=== PATIENT | female | born 1965 | race Caucasian/White ===

== ENCOUNTER 2020-04-04 09:36 | Day surgery (SDC) | payer OTHER, SELFPAY ==
[2020-03-28 13:56] VITALS: BMI 20.2
--- NOTE | 2020-04-03 10:17 | HP_ITS ---
DATE OF SERVICE: 04/04/2020 PREOPERATIVE DIAGNOSES: 1. Tailor's bunion, left foot. 2. Hammertoe deformity, left 4th and 5th toes, left foot. PLANNED PROCEDURE: Left foot total metatarsal head excision, 5th metatarsal; hammertoe repair, 4th toe; and tenotomy, capsulotomy, 4th MPJ; and flexor tenotomy, 5th toe. PAST MEDICAL HISTORY: Arthritis, anxiety, hip, back and knee pain, depression, epilepsy, fibromyalgia, headaches, migraines, chickenpox, stomach ulcer, and sleep apnea. CURRENT MEDICATIONS: Hydroxyzine, cyclobenzaprine, Fioricet, Flonase, BuSpar, and Protonix. PAST SURGICAL HISTORY: Neck fusion, leg surgery, skin cancer. FAMILY HISTORY: Diabetes, arthritis. SOCIAL HISTORY: Nonsmoker. Relates occasional alcohol use. Does relate drug use. ALLERGIES: PENICILLIN, KEFLEX, CEFTIN, ADVIL, ALEVE, MOTRIN, AND SULFA. HOSPITALIZATIONS: Stomach issues 2018 and 2019. REVIEW OF SYSTEMS: Within normal limits. HISTORY OF PRESENT ILLNESS: This is a 54-year-old female who presents with pain and tenderness on her left 4th and 5th toes in the outside of her left forefoot, it has been present for several years and gradually getting worse, relates pain with pressure especially barefooted. Has tried change in shoes, injections, orthotics, bracing, strapping, and wraps with no success. PHYSICAL EXAMINATION: GENERAL: Reveals good attention to hygiene, no acute distress. Well-developed and well-nourished. VASCULAR EXAM: DP and PT pulses are 2/4 bilaterally. Capillary refill is 3 seconds per digit. Skin temperature is warm to cool proximal to distal. Hair growth, texture, elasticity are normal bilaterally. Pigmentation is normal bilaterally and there is no edema. NEUROLOGICAL EXAM: Reveals intact sensorium. Pain sensation is normal. Vibratory sensation is intact. Pinprick sensation is normal. There is no anesthesias, burning, paresthesias, or tingling bilaterally. ORTHOPEDIC: 5/5 in all muscle groups in a symmetrical fashion. Gait abnormality is pronated and abducted. Tailor's bunion, there is a prominent painful inflamed 5th metatarsal head MPJ of the left foot. Digital deformities, digital contracture of the PIPJ T3 and completely reducible to push-up test. No over or underlapping digital contracture, reducible with weightbearing test T4, MPJ contracture of dorsal subluxation T3, pain and swelling to plantar MPJ 5th left. DERMATOLOGICAL EXAM: Reveals keratotic lesion sub-fifth metatarsal head, left foot. PLAN: Metatarsal head excision of the 5th, hammertoe repair of the 4th toe with tenotomy, capsulotomy of the 4th, and flexor tenotomy of the 5th surgery was discussed in detail with the patient including risks of surgery and not having surgery, the potential surgical complications, the anesthesia, and the usual postoperative course. No guarantees were given. We discussed with the patient complications such as, but not limited to delayed healing, nonhealing, excessive scarring, excessive swelling, failure of the procedure, floppy toe infection, nonunion, numbness, chronic pain, recurrence, shortened toe, joint stiffness, failure of the procedure, and loss of toe, foot, life, or limb. Alternatives of procedure were also discussed including conservative care. The patient would like to proceed with surgical treatment. The patient will obtain preoperative labs as well as medical clearance for surgery and anesthesia. The patient is made aware to stop any and all blood thinners including fish oil at least 1 week prior to surgery. The patient is made aware that driving may not be allowed during a portion of the postoperative period and the patient is not to utilize any smoking tobacco products at least 1 month prior to surgery and 3 months postoperatively to facilitate bone and soft tissue healing. Prescription written for Percocet 5/325 mg for the patient to take for pain postoperatively, when the patient takes the shortest duration of Percocet and switch to Tylenol Extra Strength as needed afterwards. The patient has a walker already at home and will be partial weightbearing to the left foot. Medina Hylton DPM LP/TRAVIS / [id number]
--- NOTE | 2020-04-03 10:19 | HO.ANESPROP2 ---
Documented by User: Radha Mendez 04/03/20 10:21 HPI - Anesthesia Eval Consult details Narrative: 54yo F for L hammertoe repair PCP cleared [facility] Past Medical History Medical History Anxiety Depression GERD (gastroesophageal reflux disease) History of alcohol abuse Hx of migraines Seizure Surgical History Surgical History History of esophagogastroduodenoscopy (EGD) History of open reduction and internal fixation (ORIF) procedure Social History Social History Smoking Status: Never smoker Advance Directives: No Advance Directives Information Provided: No Advance Directives on File: No Recently lost weight without trying: No Meds Allergies Allergy/AdvReac Type Severity Reaction Status Date / Time Gadolinium-Containing Allergy Mild HIVES, Verified 04/04/20 10:02 Contrast Medi ITCHINESS [Gadolinium-Containing AROUND NECK Agents] Penicillins Allergy Mild Hives Verified 04/04/20 10:02 Sulfa (Sulfonamide Allergy Mild Verified 04/04/20 10:02 Antibiotics) morphine Allergy Unknown Verified 04/04/20 10:02 lactose [Lactose] AdvReac Unknown DIARRHEA Verified 04/04/20 10:02 Home Medications Medication Instructions Recorded Confirmed Type buspirone 10 mg PO TID 03/28/20 03/28/20 History tidnymdeyi-jfdldzotwxcyb-arkk 1 cap PO Q6H PRN 03/28/20 03/28/20 History fluticasone propionate [Flonase] 1 spray INTRANASAL DAILY 03/28/20 03/28/20 History hydroxyzine HCl 25 mg PO BID 03/28/20 03/28/20 History ondansetron HCl [Zofran] 4 mg PO Q8H PRN 03/28/20 03/28/20 History pantoprazole 20 mg PO DAILY 03/28/20 03/28/20 History polyethylene glycol 3350 [Miralax] 17 g PO DAILY 03/28/20 03/28/20 History tizanidine 4 mg PO BID PRN 03/28/20 03/28/20 History Exam Exam Date and Time: April 03, 2020 1019 Height,Weight and Vital Signs: Height 5 ft 10 in Weight 63.866 kg Pertinent Lab Results Pertinent Lab Results: CBC and BMP wnl per pcp note Narrative Narrative: EKG NSR @ 72 per PCP note Assessment and Plan Assessment Anesthesia Assessment: Chart Reviewed Documented by User: Ramón Sepulveda MD 04/04/20 10:29 [facility] Past Medical History Medical History Anxiety Depression GERD (gastroesophageal reflux disease) History of alcohol abuse Hx of migraines Seizure Surgical History Surgical History History of esophagogastroduodenoscopy (EGD) History of open reduction and internal fixation (ORIF) procedure Social History Social History Smoking Status: Never smoker Advance Directives: No Advance Directives Information Provided: No Advance Directives on File: No Recently lost weight without trying: No Meds Allergies Allergy/AdvReac Type Severity Reaction Status Date / Time Gadolinium-Containing Allergy Mild HIVES, Verified 04/04/20 10:02 Contrast Medi ITCHINESS [Gadolinium-Containing AROUND NECK Agents] Penicillins Allergy Mild Hives Verified 04/04/20 10:02 Sulfa (Sulfonamide Allergy Mild Verified 04/04/20 10:02 Antibiotics) morphine Allergy Unknown Verified 04/04/20 10:02 lactose [Lactose] AdvReac Unknown DIARRHEA Verified 04/04/20 10:02 Home Medications Medication Instructions Recorded Confirmed Type buspirone 10 mg PO TID 03/28/20 03/28/20 History xndvnanmlj-evxqqllpjwltq-qeto 1 cap PO Q6H PRN 03/28/20 03/28/20 History fluticasone propionate [Flonase] 1 spray INTRANASAL DAILY 03/28/20 03/28/20 History hydroxyzine HCl 25 mg PO BID 03/28/20 03/28/20 History ondansetron HCl [Zofran] 4 mg PO Q8H PRN 03/28/20 03/28/20 History pantoprazole 20 mg PO DAILY 03/28/20 03/28/20 History polyethylene glycol 3350 [Miralax] 17 g PO DAILY 03/28/20 03/28/20 History tizanidine 4 mg PO BID PRN 03/28/20 03/28/20 History Exam Airway Mallampati Class: I TM Dist: >3cm Neck ROM: Full Loose/Missing/Broken Teeth: No Heart: RRR Lungs: NL Other: anxious Assessment and Plan Assessment Anesthesia Assessment: Anesthesia Plan Discussed and Chart Reviewed Final Anesthetic Review NPO: Yes ASA Class: II Final Preanesthetic Review: No Changes in Pt Med Stat, Meds/Allgs Chart Reviewed, Consent Obtained/Reviewed and Anes Risks/Benef Reviewed Patient Risk: Low Procedure Risk: Low Anesthetic Plan Anesthetic Plan: MAC: Disposition: Standard PACU
[2020-04-04 09:51] VITALS: BP 144/77; PULSE 75; RESP 16; TEMP 36.5; O2SAT 96
[2020-04-04] MEDS: vancomycin HCL 1,000 MG in 0.9 % Sodium Chloride 250 ML 270 MG IV (09:55)
[2020-04-04] MEDS: Lactated Ringers 1,000 ML 100 ML IVCONT (10:03)
--- NOTE | 2020-04-04 10:06 | MHC.SHP ---
Pre-Procedural Eval Section A The patient is an INPATIENT: No Changes since office visit: No Cold of Flu in the past 2 weeks, No New Medical Problems, No Changes in Medication and No Patient answered all questions The History & Physical has been completed within 30 days and I have reviewed it.: Yes Section B Chief Complaint: Bunionette, Hammer toe, Toe Deformities Allergies: Allergies Allergy/AdvReac Type Severity Reaction Status Date / Time Gadolinium-Containing Allergy Mild HIVES, Verified 04/04/20 10:02 Contrast Medi ITCHINESS [Gadolinium-Containing AROUND NECK Agents] Penicillins Allergy Mild Hives Verified 04/04/20 10:02 Sulfa (Sulfonamide Allergy Mild Verified 04/04/20 10:02 Antibiotics) morphine Allergy Unknown Verified 04/04/20 10:02 lactose [Lactose] AdvReac Unknown DIARRHEA Verified 04/04/20 10:02 Plan I have reviewed the history and physical and performed a pertinent physical examination on my patient. No changes have occurred unless specified.
[2020-04-04 11:00] VITALS: BP 104/60; PULSE 73; RESP 16; TEMP 36.6; O2SAT 99
[2020-04-04 11:15] VITALS: BP 115/68; PULSE 64; RESP 16; TEMP 36.6; O2SAT 96
--- NOTE | 2020-04-04 11:42 | HO.POSTANES ---
Post Anesthesia Evaluation Post Anesthesia Evaluation Vital Signs: Vital Signs Temp Pulse Resp BP Pulse Ox 04/04/20 11:15 98 F 64 16 115/68 96 04/04/20 11:00 98 F 73 16 104/60 99 04/04/20 09:51 97.7 F 75 16 144/77 H 96 Anesthesia: Monitored Mental Status: Awake Pain Control: Satisfactory Nausea/Vomiting: None Hydration: Adequate Anesthesia-Related Issues: No Anes. Related Issues
--- NOTE | 2020-04-04 17:37 | OP_ITS ---
[facility] OPERATIVE REPORT PATIENT NAME: Barbie Henriquez DATE OF : 1965 LOCATION: [facility] DATE OF SERVICE: [facility]04/2020 [id number] PCP: OPERATIVE REPORT Page 1 SURGEON: Medina Hylton DPM PREOPERATIVE DIAGNOSES: 1. Tailor's bunion, left foot. 2. Hammertoe deformity, left 4th digit. 3. Contracture, metatarsophalangeal joint, left 4th. 4. Hammertoe deformity, left 5th digit. POSTOPERATIVE DIAGNOSES: 1. Tailor's bunion, left foot. 2. Hammertoe deformity, left 4th digit. 3. Contracture, metatarsophalangeal joint, left 4th. 4. Hammertoe deformity, left 5th digit. PROCEDURES PERFORMED: 1. Excision of left 5th metatarsal head. 2. Hammertoe repair, left 4th digit. 3. Tenotomy, capsulotomy, left 4th metatarsophalangeal joint. 4. Flexor tenotomy, left 5th digit. ESTIMATED BLOOD LOSS: Less than 1 mL. COMPLICATIONS: None. ANESTHESIA: Monitored anesthetic care with local consisting preoperatively of 12 mL of 0.5% Marcaine plain and 2% lidocaine plain and postoperatively of 0.5% Marcaine plain and 1 mL of dexamethasone. ASSISTANTS: Maxim Victor DPM SPECIMENS: Bone HEMOSTASIS: Pneumatic ankle tourniquet set at 215 mmHg for 22 minutes. COMPLICATIONS: None. INDICATIONS FOR SURGERY: The patient had a painful tailor's bunion noted to the left foot as well as hammertoe deformities and contracture of the 4th digit as well as contracture and hammertoe deformity of the 5th digit. The above-mentioned surgery was discussed in detail with the patient including risks and benefits of surgery and not having surgery, the potential surgical complications. No guarantees were given, and written and oral informed consents were obtained. PROCEDURE IN DETAIL: The patient was brought to the operating room, placed on operating table in supine position. Prior to the start of anesthesia, vancomycin was administered as a prophylactic antibiotic. The left foot was anesthetized and left foot was scrubbed, prepped, and draped in a sterile manner. Attention was directed to the left foot. Pneumatic ankle tourniquet was inflated and the first incision was made overlying the 5th metatarsal head. The incision was deepened down through subcutaneous tissue with great care being taken to retract vital, neuro and vascular structures and all bleeders were cauterized as necessary. A capsulotomy was made lateral and parallel to the extensor tendon to the level of the 5th metatarsal head. The soft tissues were freed from the 5th metatarsal head using a McGlamry elevator, a sagittal saw was then used to resect the 5th metatarsal head in total with a slight declination from dorsal to proximal. The 5th metatarsal head was removed in total and passed from the operative site. Any rough edges of the remaining bone were then rongeured smooth. The wound was irrigated with normal sterile saline. Amnio fill was then reconstituted with saline and placed within the area that the 5th metatarsal had been removed. The capsular structures were then reapproximated with 2-0 Vicryl in a continuous running fashion and the skin was reapproximated with 4-0 nylon in a continuous running fashion. Attention was then directed to the 4th toe of the PIP joint. An incision was made overlying the PIP joint and great care was taken to retract vital, neuro and vascular structures and all bleeders were cauterized as necessary. The extensor tendon was transected at the level of the PIP joint. The soft tissues were free from the head of the proximal phalanx. Using a sagittal saw, the head of the proximal phalanx was resected and passed from the operative site. The wound was irrigated with normal sterile saline. The excessive tendon was transected with a tenotomy scissor and the extensor tendon was reapproximated with 3-0 Vicryl in an interrupted suture technique and the skin was reapproximated with 4-0 nylon in a continuous running fashion. A stab incision was made overlying the dorsal aspect of the 4th metatarsophalangeal joint where a tenotomy-capsulotomy was performed of the extensor tendon of the 4th MTPJ to allow for the 4th toe to drift into a more neutral and relaxed position. This incision was irrigated with normal sterile saline and was reapproximated with 4- 0 nylon in an interrupted suture technique. Attention was then directed to the plantar aspect of the 5th digit where another stab incision was made into the flexor tendon, which was transected in total at the level of the PIP joint. The wound was irrigated with sterile saline and then was reapproximated with 4-0 nylon in an interrupted suture technique. 5 mL of 0.5% Marcaine plain and 1 mL of dexamethasone was then administered to the left foot in a regional field block fashion. The left foot was then dressed with Xeroform, 4 x 4 gauze, Betadine-soaked gauze, Donal, fluffs, cast padding, and Tomi bandage. The pneumatic ankle tourniquet was deflated and prompt capillary refill was noted to all 5 digits. The patient was transferred to the recovery room with vital signs stable and vascular status at preoperative levels. Following a period of postoperative recovery, the patient be discharged home with written and oral postoperative instructions. The patient to be partial weightbearing to the left foot as needed and can use a walker or crutches for ambulation and patient will follow up in my office for all postoperative followup care. Medina Hylton DPM LP/TRAVIS / [id number]
== END 2020-04-04 11:43 | disposition home or self-care (01) ==
PROVIDERS: PCP Internal Medicine; Visit Provider Podiatrist
PROC: (CPT 28285; principal; 2020-04-04 11:00)
DX: M20.42 Other hammer toe(s) (acquired), left foot (principal); M21.622 Bunionette of left foot; M20.5X2 Other deformities of toe(s) (acquired), left foot; M24.575 Contracture, left foot; F32.9 Major depressive disorder, single episode, unspecified; R56.9 Unspecified convulsions; Z79.899 Other long term (current) drug therapy; Z91.041 Radiographic dye allergy status; Z88.0 Allergy status to penicillin; Z88.2 Allergy status to sulfonamides; Z88.8 Allergy status to other drugs, medicaments and biological substances
CPT/HCPCS: 28285; 28113; 28232; 28270; 88304; 88311; J1100; J2250; J3010; J3370; J3590

== ENCOUNTER 2022-09-21 11:48 | Observation (INO) | payer OTHER, SELFPAY ==
--- NOTE | ~2022-09-21 | CT_ITS ---
EXAMINATION: CT ABDOMEN AND PELVIS WITH CONTRAST CLINICAL INFORMATION: Lower abdominal pain COMPARISON: CT abdomen pelvis 01/23/2020 TECHNIQUE: Multidetector volumetric images were obtained from the superior aspect of the liver through the pubic symphysis following administration 85 mL of Omnipaque 350 intravenous contrast. Sagittal and coronal reformatted images were obtained on the technologist's workstation. Oral contrast: No This CT examination was performed using dose optimization techniques as appropriate, variously including the following: *Automated exposure control *Adjustment of mA and/or kV according to patient size (this includes techniques or standardized protocols for targeted exams where dose is matched to indication/reason for exam; i.e. extremities or head) *Use of iterative reconstruction technique DLP: 430 mGy-cm FINDINGS: LUNG BASES: Motion artifact limits assessment. No abnormality seen LIVER, GALLBLADDER, AND BILIARY TREE: The liver is normal in size, shape, and attenuation. No focal hepatic lesion or biliary ductal dilatation is present. The gallbladder is unremarkable with no evidence of radiopaque gallstones, gallbladder wall thickening, or obvious pericholecystic inflammatory changes. PANCREAS: Unremarkable. SPLEEN: Unremarkable. ADRENAL GLANDS: Unremarkable. KIDNEYS AND URETERS: The kidneys are normal in size, shape, and attenuation. No hydronephrosis, hydroureter, or calculi seen. No perinephric stranding. BLADDER: Unremarkable. GASTROINTESTINAL TRACT: There is some mucosal thickening involving the distal rectum with some mild inflammatory changes in the fat. These findings are new when compared to 01/22/2010. There is marked sigmoid diverticulosis without diverticulitis. The small and large bowel are otherwise unremarkable. The appendix is unremarkable. ABDOMINAL WALL: No significant hernia is appreciated. LYMPH NODES: No retroperitoneal lymphadenopathy. VASCULAR: Unremarkable. PELVIC VISCERA: The uterus and adnexa are unremarkable. OSSEOUS STRUCTURES: Mild degenerative changes in the spine most marked at L4-L5. There is grade 1 retrolisthesis of L4 upon L5. No bony destructive lesions CT/CT abdomen pelvis w IV con IMPRESSION: 1. There is some mucosal thickening involving the distal rectum with some mild inflammatory changes in the fat. Findings could represent proctitis. 2. Sigmoid diverticulosis without diverticulitis. 3. Other incidental findings as described above. Fleischner guidelines were followed.
[2022-09-21 11:53] VITALS: BP 120/90; PULSE 54; O2SAT 99
--- NOTE | 2022-09-21 11:54 | ED.GENADULT ---
HPI - General Adult General Chief complaint: Abdominal Pain Stated complaint: LOW ABD PAIN PER EMS Time Seen by Provider: 09/21/22 12:32 Related Data Home Medications Medication Instructions Recorded Confirmed buspirone 10 mg tablet 10 mg PO TID 03/28/20 03/28/20 vmwaciziqr-zgojqrdbxeaon-kltugxuo 1 cap PO Q6H PRN Migraine Headache 03/28/20 03/28/20 50 mg-325 mg-40 mg capsule fluticasone propionate 50 1 spray intranasal DAILY 03/28/20 03/28/20 mcg/actuation nasal spray,suspension hydroxyzine HCl 25 mg tablet 25 mg PO BID 03/28/20 03/28/20 ondansetron HCl 4 mg tablet 4 mg PO Q8H PRN Nausea And Vomiting 03/28/20 03/28/20 (Zofran) pantoprazole 20 mg tablet,delayed 20 mg PO DAILY 03/28/20 03/28/20 release polyethylene glycol 3350 17 gram 17 g PO DAILY 03/28/20 03/28/20 oral powder packet (Miralax) tizanidine 4 mg capsule 4 mg PO BID PRN Pain 03/28/20 03/28/20 Allergies Allergy/AdvReac Type Severity Reaction Status Date / Time Gadolinium-Containing Allergy Mild HIVES, Verified 04/04/20 10:02 Contrast Medi ITCHINESS [Gadolinium-Containing AROUND NECK Agents] Penicillins Allergy Mild Hives Verified 04/04/20 10:02 Sulfa (Sulfonamide Allergy Mild Verified 04/04/20 10:02 Antibiotics) morphine Allergy Unknown Verified 04/04/20 10:02 lactose [Lactose] AdvReac Unknown DIARRHEA Verified 04/04/20 10:02 [facility] Past Medical History Medical History Anxiety Depression GERD (gastroesophageal reflux disease) History of alcohol abuse Hx of migraines Seizure Surgical History History of esophagogastroduodenoscopy (EGD) History of open reduction and internal fixation (ORIF) procedure Social History Social History Advance Directives: No Advance Directives Information Provided: Yes Physical Exam ED Vital Signs: Vital Signs - 24 hr 09/21/22 11:56 Temperature 96.8 F Pulse Rate 45 L Respiratory Rate 16 Blood Pressure 131/59 L Pulse Oximetry 100 Oxygen Delivery Method Room Air BMI result Body Mass Index 17.5 Course Course Course Narrative: RME- 57 year old female presents for evaluation of lower abdominal pain. She has a history of diverticulitis anxiety. The patient presents from her PCP office. Plan for labs, UA and imaging Medications Administered Discontinued Medications Generic Name Dose Route Start Last Admin Trade Name Stella PRN Reason Stop Dose Admin Sodium Chloride 1,000 mls @ 999 mls/hr 09/21/22 14:15 09/21/22 14:23 Ns IV 09/21/22 15:15 999 mls/hr .Q1H1M MARÍA Administration Iohexol 100 ml 09/21/22 14:03 09/21/22 14:03 Iohexol 350 Mg/Ml 100 Ml Infus..Btl IV 09/21/22 14:04 85 ml ONCE ONE Administration Lorazepam 1 mg 09/21/22 13:15 09/21/22 13:27 Lorazepam 1 Mg Tablet PO 09/21/22 13:16 1 mg ONCE ONE Administration Morphine Sulfate 4 mg 09/21/22 14:11 09/21/22 14:28 Morphine Sulfate 4 Mg/Ml Cartridge IVPUSH 09/21/22 14:12 4 mg ONCE ONE Administration Protocol Ondansetron HCl 4 mg 09/21/22 13:15 09/21/22 13:26 Ondansetron Odt 4 Mg Tab.Rapdis TRANSLINGU 09/21/22 13:16 4 mg ONCE ONE Administration Medical Decision Making Lab Data 09/21/22 12:29 09/21/22 12:29 Labs: Lab Results 09/21/22 09/21/22 09/21/22 Range/Units 12:29 12:29 12:29 WBC 7.7 (4.8-10.8) X10*3/uL RBC 4.13 L (4.20-5.50) X10*6/uL Hgb 14.1 (12.0-16.0) g/dl Hct 41.0 (37.0-47.0) % MCV 99.3 H (80.0-98.0) fL MCH 34.1 H (27.0-33.0) pg MCHC 34.4 (31.0-35.0) g/dl RDW 12.9 (11.0-16.0) % Plt Count 430 H (160-400) X10*3/uL MPV 9.3 L (9.4-12.3) fL Immature Gran % (Auto) 0.3 (0.0-0.4) % Neut % (Auto) 73.2 H (45-73) % Lymph % (Auto) 16.1 L (20-40) % [place] % (Auto) 8.0 (2-11) % Eos % (Auto) 1.9 (0-4) % Baso % (Auto) 0.5 (0-2) % Lymph # (Auto) 1.3 (1.2-4.9) X10*3/uL [place] # (Auto) 0.6 (0.1-1.2) X10*3/uL Eos # (Auto) 0.2 (0.0-0.4) X10*3/uL Baso # (Auto) 0.0 (0.0-0.2) X10*3/uL Abs Immat Gran (auto) 0.02 (0.00-0.03) X10*3/uL Absolute Neuts (auto) 5.7 (2.0-8.3) x10*3/uL Absolute Nucleated RBC 0.000 (0.0-0.012) X10*3/uL Nucleated RBC % (auto) 0.0 (0.0-0.2) /100WBC Smear Tech's Comments VERIFIED Sodium 137 (135-145) mmol/L Potassium 3.1 L (3.3-5.1) mmol/L Chloride 108 (96-108) mmol/L Carbon Dioxide 18 L (22-29) mmol/L Anion Gap 14 (12-20) BUN 5 L (9-16) mg/dL Creatinine 0.66 (0.5-1.4) mg/dL Estim Creat Clear Calc 82.1 Estimated GFR > 60 Random Glucose 113 (60-115) mg/dL Calcium 9.3 (8.4-10.2) mg/dL Total Bilirubin 0.7 (0.0-1.0) mg/dL AST 33 H (5-31) U/L ALT 24 (0-31) U/L Alkaline Phosphatase 120 H (39-117) U/L Total Protein 6.9 (6.5-8.0) g/dL Albumin 3.8 (3.5-5.0) g/dL Lipase 12 (8-78) U/L Urine Color Yellow Urine Appearance Clear Urine pH 6.0 (5.0-9.0) Ur Specific [place] 1.010 (1.005-1.025) Urine Protein Negative (Neg-Trace) mg/dL Urine Glucose (UA) Negative (Negative) mg/dL Urine Ketones 15 (Negative) mg/dL Urine Blood Negative (Negative) Urine Nitrite Negative (Negative) Ur Leukocyte Esterase Trace H (Negative) Urine RBC 0-2 (0-2) /HPF Urine WBC 0-5 (0-5) /HPF Ur Squamous Epith Cells 0-2 (0-2) /HPF Urine Bacteria None Seen (None Seen) Hyaline Casts 0-2 (0-2) /LPF Discharge Plan Discharge Prescriptions: No Action ctpjjfsimj-kfnfuuejbawks-fijn 50-325-40 mg Capsule 1 cap PO Q6H PRN (Reason: Migraine Headache) polyethylene glycol 3350 [Miralax] 17 gram Powder In Packet 17 g PO DAILY ondansetron HCl [Zofran] 4 mg Tablet 4 mg PO Q8H PRN (Reason: Nausea And Vomiting) pantoprazole 20 mg Tablet,Delayed Release (Dr/Ec) 20 mg PO DAILY buspirone 10 mg Tablet 10 mg PO TID hydroxyzine HCl 25 mg Tablet 25 mg PO BID fluticasone propionate [Flonase] 50 mcg/actuation [place],Suspension 1 spray INTRANASAL DAILY tizanidine 4 mg Capsule 4 mg PO BID PRN (Reason: Pain)
[2022-09-21 11:56] VITALS: BP 131/59; PULSE 45; RESP 16; TEMP 36; O2SAT 100; BMI 17.5
[2022-09-21 12:38] LABS: Appearance Urine Clear; Color Urine Yellow; Glucose Urine UA Negative (Negative); Leukocyte Esterase Urine Trace (Negative); Nitrite Urine Negative (Negative); UMIC TRIGGER UACC YES; Urine Blood Negative (Negative); Urine Ketones 15 mg/dL (Negative); Urine Protein Negative (Neg-Trace)
[2022-09-21 12:41] LABS: Bacteria Urine None Seen (None Seen); Basophils Percent Auto 0.5 % (0-2); Eosinophils Absolute Auto 0.2 X10*3/uL (0.0-0.4); Eosinophils Percent Auto 1.9 % (0-4); Hyaline Casts Urine 0-2 /LPF (0-2); Monocytes Absolute Auto 0.6 X10*3/uL (0.1-1.2); PLT CLUMP 1; RBC Urine 0-2 /HPF (0-2); SCAN SMEAR FLAG 1; Squamous Epithelial Cell Urine 0-2 /HPF (0-2); WBC Urine 0-5 /HPF (0-5)
[2022-09-21 12:42] LABS: Hemoglobin 14.1 g/dl (12.0-16.0); Imm Gran Abs Auto 0.02 X10*3/uL (0.00-0.03); Imm Gran Pct Auto 0.3 % (0.0-0.4); Lymphocytes Absolute Auto 1.3 X10*3/uL (1.2-4.9); Lymphocytes Percent Auto 16.1 % (20-40); MANUAL DIFF FLAG SCAN; Mean Corpuscular HGB Conc 34.4 g/dl (31.0-35.0); Mean Corpuscular Hemoglobin 34.1 pg (27.0-33.0); Mean Corpuscular Volume 99.3 fL (80.0-98.0); Mean Platelet Volume 9.3 fL (9.4-12.3); Neutrophils Absolute Auto 5.7 x10*3/uL (2.0-8.3); Neutrophils Percent Auto 73.2 % (45-73); Red Blood Count 4.13 X10*6/uL (4.20-5.50); Red Cell Distribution Width 12.9 % (11.0-16.0)
[2022-09-21 12:52] LABS: White Blood Count 7.7 X10*3/uL (4.8-10.8)
[2022-09-21 12:54] LABS: Alanine Aminotransferase 24 U/L (0-31); Albumin Level 3.8 g/dL (3.5-5.0); Alkaline Phosphatase 120 U/L (39-117); Anion Gap 14 (12-20); Aspartate Amino Transferase 33 U/L (5-31); Bilirubin Total 0.7 mg/dL (0.0-1.0); Blood Urea Nitrogen 5 mg/dL (9-16); Calcium 9.3 mg/dL (8.4-10.2); Carbon Dioxide 18 mmol/L (22-29); Chloride 108 mmol/L (96-108); Creatinine Clr Calc Pharmacy 82.1; Estimated Glomerular Filt Rate > 60; Glucose Random 113 mg/dL (60-115); Lipase 12 U/L (8-78); Potassium 3.1 mmol/L (3.3-5.1); Sodium 137 mmol/L (135-145); Total Protein 6.9 g/dL (6.5-8.0)
--- NOTE | 2022-09-21 12:59 | ED.ABDPAIN ---
HPI - Abdominal Pain General Chief Complaint: Abdominal Pain Stated Complaint: LOW ABD PAIN PER EMS Time Seen by Provider: 09/21/22 12:32 Source: patient Mode of arrival: ambulatory Limitations: no limitations History of Present Illness HPI narrative: 57-year-old female history of diverticulitis, fibromyalgia, anxiety presents to the emergency department for evaluation of abdominal pain, localized to the lower abdomen however worse to the right lower quadrant. Patient reports recent diagnosis of diverticulitis 2 weeks ago, was prescribed antibiotics had a difficult time obtaining the correct antibiotics secondary to allergies, patient had multiple antibiotics sent to her pharmacy which she was not tolerating due to allergies, patient is supposed to be on 2 different antibiotics however only took 1 for a few days. She states that her pain is constant, uncomfortable and associated with nausea. No vomiting. Patient has fluctuating diarrhea and constipation however has a history of IBS and this is normal for her. Patient also having some anxiety today and states her anxiety is at times associated with numbness, tingling and shortness of breath. Only has these symptoms when feeling anxious. Denies fevers, chills, chest pain, shortness of breath, headache, vision changes, dizziness. To note patient currently on flagyl however states its not helping Related Data Home Medications Medication Instructions Recorded Confirmed buspirone 10 mg tablet 10 mg PO TID 03/28/20 09/21/22 [id number]-vknjmboiarjnc-[id number] 1 cap PO Q6H PRN Migraine Headache 03/28/20 03/28/20 50 mg-325 mg-40 mg capsule fluticasone propionate 50 1 spray intranasal DAILY 03/28/20 09/21/22 mcg/actuation nasal spray,suspension hydroxyzine HCl 25 mg tablet 25 mg PO BID 03/28/20 09/21/22 pantoprazole 20 mg tablet,delayed 20 mg PO DAILY 03/28/20 09/21/22 release polyethylene glycol 3350 17 gram 17 g PO DAILY 03/28/20 03/28/20 oral powder packet (Miralax) metronidazole 500 mg tablet 500 mg PO TID 09/21/22 09/21/22 ondansetron HCl 4 mg tablet 4 - 8 mg PO BID PRN nausea/vomiting 09/21/22 09/21/22 tizanidine 2 mg tablet 2 mg PO BEDTIME PRN Pain 07/24/23 07/24/23 Allergies Allergy/AdvReac Type Severity Reaction Status Date / Time Gadolinium-Containing Allergy Mild HIVES, Verified 04/04/20 10:02 Contrast Medi ITCHINESS [Gadolinium-Containing AROUND NECK Agents] Penicillins Allergy Mild Hives Verified 04/04/20 10:02 Sulfa (Sulfonamide Allergy Mild Verified 04/04/20 10:02 Antibiotics) morphine Allergy Unknown Verified 04/04/20 10:02 lactose [Lactose] AdvReac Unknown DIARRHEA Verified 04/04/20 10:02 Review of Systems Review of Systems Constitutional : No Weight loss, No Fever, No Chills, + Fatigue, + Malaise ENT/Mouth : No sore throat, No Rhinorrhea Eyes: No Eye Pain, No Swelling, No Redness Cardiovascular : No Chest Pain, No SOB, No Dyspnea on Exertion, No Orthopnea, No Edema, No Palpitations Respiratory : No Cough, No Sputum, No Wheezing Gastrointestinal : + Nausea, No Vomiting, No Diarrhea, No Constipation, + abdominal Pain, No Hematochezia, No Melena Genitourinary : No Dysuria, No Urinary Frequency, No Hematuria, Musculoskeletal : No joint pain, No Myalgias, No Joint Swelling Skin : No Skin Lesions, No rash Neuro : No Weakness, No Numbness, No Dizziness, No Headache Psych : No Anxiety/Panic, No Depression All other systems reviewed and are negative [facility] Past Medical History Attestation statement: The following information was validated with the patient. Source: old records reviewed and nursing notes reviewed Medical History Anxiety Depression GERD (gastroesophageal reflux disease) History of alcohol abuse Hx of migraines Seizure Surgical History History of esophagogastroduodenoscopy (EGD) History of open reduction and internal fixation (ORIF) procedure Social History Social History Alcohol intake: current Alcohol intake frequency: holidays/special occasions only Alcohol type: wine Smoked in Last 30 Days: No Use of substances other than those prescribed or required for medical reasons: No Advance Directives: No Advance Directives Information Provided: Yes Physical Exam ED Vital Signs: Vital Signs - 24 hr 09/21/22 11:56 09/21/22 15:54 Temperature 96.8 F Pulse Rate 45 L 65 Respiratory Rate 16 14 Blood Pressure 131/59 L 110/68 Pulse Oximetry 100 98 Oxygen Delivery Method Room Air Room Air BMI result Body Mass Index 17.5 vss Appearance: Alert.? Oriented X3.? No acute distress.? Anxious appearing Head: Normocephalic, atraumatic, no step-offs or deformities Eyes: Pupils equal, round and reactive to light.? ENT: Pharynx normal.? Neck: Normal inspection.? Neck supple.? CVS: Normal heart rate and rhythm.? Pulses normal.? Respiratory: No respiratory distress.? Breath sounds normal.? Abdomen: Soft and diffusely tender to lower abdomen worse on the right lower quadrant..? Skin: Skin warm and dry.? Normal skin color.? Normal skin turgor.? Extremities: No lower extremity edema.? No calf ttp. 5/5 strength to bilateral upper and lower extremities Back: No midline tenderness, no C-spine tenderness, full range of motion, no CVA tenderness bilaterally Neuro: Oriented X 3.? No motor deficit.? No sensory deficit. CN 2-12 intact Course Course Course Narrative: 1729--patient reporting continued abdominal pain and nausea, will give additional doses of IV morphine, Zofran, and additional potassium p.o. CT abdomen pelvis w IV con IMPRESSION: 1.? There is some mucosal thickening involving the distal rectum with some mild inflammatory changes in the fat. Findings could represent proctitis. 2.? Sigmoid diverticulosis without diverticulitis. 3.? Other incidental findings as described above. ? Fleischner guidelines were followed. > on re-evaluation patient reports continued pain, planned for admission. Empiric IV Rocephin ordered Reevaluation(s) Reevaluation #1: CBC no acute findings. Potassium 3.1 oral potassium ordered. No other acute findings. UA clean. Imaging pending. Sign out to Emily. Time: 16:06 Medical Decision Making Medical Decision Making [facility] Narrative: 1300 57 year old female presents w/ anxiety, lower abd discomfort and nausea X 3 days PE w/ diffuse lower abd ttp RLQ >LLQ. Likely anxiety vs viral illness vs IBS. Will rule out intra abdominal etiologies such as appendicitis, diverticulitis. No signs of acute surgical abdomen, pancreatitis, cholecysitis, obstruciton, GERD. Will rule out electrolyte derangements, UTI. Unlikely ovarian cyst or torsion. Plan labs, imaging, urine. Differential Diagnosis Differential Diagnoses: The differential diagnosis associated with the presentation includes Likely anxiety vs viral illness vs IBS. Will rule out intra abdominal etiologies such as appendicitis, diverticulitis. No signs of acute surgical abdomen, pancreatitis, cholecysitis, obstruciton, GERD. Will rule out electrolyte derangements, UTI. Unlikely ovarian cyst or torsion. Admission/Observation Consideration of admission/observation: Escalation of care including admission/observation considered possible Lab Data MDM Lab Attestation statement: I reviewed the patient's lab results. 09/21/22 12:29 09/21/22 12:29 Labs: Lab Results 09/21/22 09/21/22 09/21/22 Range/Units 12:29 12:29 12:29 WBC 7.7 (4.8-10.8) X10*3/uL RBC 4.13 L (4.20-5.50) X10*6/uL Hgb 14.1 (12.0-16.0) g/dl Hct 41.0 (37.0-47.0) % MCV 99.3 H (80.0-98.0) fL MCH 34.1 H (27.0-33.0) pg MCHC 34.4 (31.0-35.0) g/dl RDW 12.9 (11.0-16.0) % Plt Count 430 H (160-400) X10*3/uL MPV 9.3 L (9.4-12.3) fL Immature Gran % (Auto) 0.3 (0.0-0.4) % Neut % (Auto) 73.2 H (45-73) % Lymph % (Auto) 16.1 L (20-40) % [place] % (Auto) 8.0 (2-11) % Eos % (Auto) 1.9 (0-4) % Baso % (Auto) 0.5 (0-2) % Lymph # (Auto) 1.3 (1.2-4.9) X10*3/uL [place] # (Auto) 0.6 (0.1-1.2) X10*3/uL Eos # (Auto) 0.2 (0.0-0.4) X10*3/uL Baso # (Auto) 0.0 (0.0-0.2) X10*3/uL Abs Immat Gran (auto) 0.02 (0.00-0.03) X10*3/uL Absolute Neuts (auto) 5.7 (2.0-8.3) x10*3/uL Absolute Nucleated RBC 0.000 (0.0-0.012) X10*3/uL Nucleated RBC % (auto) 0.0 (0.0-0.2) /100WBC Smear Tech's Comments VERIFIED Sodium 137 (135-145) mmol/L Potassium 3.1 L (3.3-5.1) mmol/L Chloride 108 (96-108) mmol/L Carbon Dioxide 18 L (22-29) mmol/L Anion Gap 14 (12-20) BUN 5 L (9-16) mg/dL Creatinine 0.66 (0.5-1.4) mg/dL Estim Creat Clear Calc 82.1 Estimated GFR > 60 Random Glucose 113 (60-115) mg/dL Calcium 9.3 (8.4-10.2) mg/dL Total Bilirubin 0.7 (0.0-1.0) mg/dL AST 33 H (5-31) U/L ALT 24 (0-31) U/L Alkaline Phosphatase 120 H (39-117) U/L Total Protein 6.9 (6.5-8.0) g/dL Albumin 3.8 (3.5-5.0) g/dL Lipase 12 (8-78) U/L Urine Color Yellow Urine Appearance Clear Urine pH 6.0 (5.0-9.0) Ur Specific [place] 1.010 (1.005-1.025) Urine Protein Negative (Neg-Trace) mg/dL Urine Glucose (UA) Negative (Negative) mg/dL Urine Ketones 15 (Negative) mg/dL Urine Blood Negative (Negative) Urine Nitrite Negative (Negative) Ur Leukocyte Esterase Trace H (Negative) Urine RBC 0-2 (0-2) /HPF Urine WBC 0-5 (0-5) /HPF Ur Squamous Epith Cells 0-2 (0-2) /HPF Urine Bacteria None Seen (None Seen) Hyaline Casts 0-2 (0-2) /LPF 09/21/ Range/Units 16:21 WBC (4.8-10.8) X10*3/uL RBC (4.20-5.50) X10*6/uL Hgb (12.0-16.0) g/dl Hct (37.0-47.0) % MCV (80.0-98.0) fL MCH (27.0-33.0) pg MCHC (31.0-35.0) g/dl RDW (11.0-16.0) % Plt Count (160-400) X10*3/uL MPV (9.4-12.3) fL Immature Gran % (Auto) (0.0-0.4) % Neut % (Auto) (45-73) % Lymph % (Auto) (20-40) % [place] % (Auto) (2-11) % Eos % (Auto) (0-4) % Baso % (Auto) (0-2) % Lymph # (Auto) (1.2-4.9) X10*3/uL [place] # (Auto) (0.1-1.2) X10*3/uL Eos # (Auto) (0.0-0.4) X10*3/uL Baso # (Auto) (0.0-0.2) X10*3/uL Abs Immat Gran (auto) (0.00-0.03) X10*3/uL Absolute Neuts (auto) (2.0-8.3) x10*3/uL Absolute Nucleated RBC (0.0-0.012) X10*3/uL Nucleated RBC % (auto) (0.0-0.2) /100WBC Smear Tech's Comments Sodium 142 (135-145) mmol/L Potassium 3.2 L (3.3-5.1) mmol/L Chloride 108 (96-108) mmol/L Carbon Dioxide 25 (22-29) mmol/L Anion Gap 12 (12-20) BUN 4 L (9-16) mg/dL Creatinine 0.66 (0.5-1.4) mg/dL Estim Creat Clear Calc 82.1 Estimated GFR > 60 Random Glucose 96 (60-115) mg/dL Calcium 9.7 (8.4-10.2) mg/dL Total Bilirubin 0.9 (0.0-1.0) mg/dL AST 30 (5-31) U/L ALT 25 (0-31) U/L Alkaline Phosphatase 130 H (39-117) U/L Total Protein 7.4 (6.5-8.0) g/dL Albumin 4.2 (3.5-5.0) g/dL Lipase (8-78) U/L Urine Color Urine Appearance Urine pH (5.0-9.0) Ur Specific [place] (1.005-1.025) Urine Protein (Neg-Trace) mg/dL Urine Glucose (UA) (Negative) mg/dL Urine Ketones (Negative) mg/dL Urine Blood (Negative) Urine Nitrite (Negative) Ur Leukocyte Esterase (Negative) Urine RBC (0-2) /HPF Urine WBC (0-5) /HPF Ur Squamous Epith Cells (0-2) /HPF Urine Bacteria (None Seen) Hyaline Casts (0-2) /LPF Independent Interpretation I performed an independent interpretation of an: CT Scan Radiology Impression Discussion of test interpretation with radiology: I have reviewed the radiologist's reading. Core Measures AMI core measures followed: Yes Measure exclusions: not indicated Medications Administered Discontinued Medications Generic Name Dose Route Start Last Admin Trade Name Freq PRN Reason Stop Dose Admin Hydroxyzine HCl 25 mg 09/21/22 17:08 09/21/22 17:19 Hydroxyzine Hcl 25 Mg Tablet PO 09/21/22 17:09 25 mg ONCE ONE Administration Sodium Chloride 1,000 mls @ 999 mls/hr 09/21/22 14:15 09/21/22 14:23 Ns IV 09/21/22 15:15 999 mls/hr .Q1H1M MARÍA Administration Iohexol 100 ml 09/21/22 14:03 09/21/22 14:03 Iohexol 350 Mg/Ml 100 Ml Infus..Btl IV 09/21/22 14:04 85 ml ONCE ONE Administration Lorazepam 1 mg 09/21/22 13:15 09/21/22 13:27 Lorazepam 1 Mg Tablet PO 09/21/22 13:16 1 mg ONCE ONE Administration Morphine Sulfate 4 mg 09/21/22 14:11 09/21/22 14:28 Morphine Sulfate 4 Mg/Ml Cartridge IVPUSH 09/21/22 14:12 4 mg ONCE ONE Administration Protocol Morphine Sulfate 2 mg 09/21/22 17:07 09/21/22 17:18 Morphine Sulfate 2 Mg/Ml Cartridge IVPUSH 09/21/22 17:08 2 mg ONCE ONE Administration Protocol Ondansetron HCl 4 mg 09/21/22 13:15 09/21/22 13:26 Ondansetron Odt 4 Mg Tab.Rapdis TRANSLINGU 09/21/22 13:16 4 mg ONCE ONE Administration Ondansetron HCl 4 mg 09/21/22 17:07 09/21/22 17:19 Ondansetron Hcl 4 Mg/2 Ml Vial IVPUSH 09/21/22 17:08 4 mg ONCE ONE Administration Potassium Chloride 20 meq 09/21/22 16:06 09/21/22 16:15 Potassium Chloride Packet 20 Meq Packet PO 09/21/22 16:07 20 meq ONCE ONE Administration Potassium Chloride 40 meq 09/21/22 17:15 09/21/22 17:20 Potassium Chloride Packet 20 Meq Packet PO 09/21/22 17:16 40 meq ONCE ONE Administration Critical Care Time Critical Care Time Critical Care Time: No Discharge Plan Discharge Clinical Impression: Abdominal pain, Anxiety Patient Disposition: Still a Patient Prescriptions: No Action [id number]-fgkyriclaxret-cnbx 50-325-40 mg Capsule 1 cap PO Q6H PRN (Reason: Migraine Headache) polyethylene glycol 3350 [Miralax] 17 gram Powder In Packet 17 g PO DAILY pantoprazole 20 mg Tablet,Delayed Release (Dr/Ec) 20 mg PO DAILY buspirone 10 mg Tablet 10 mg PO TID hydroxyzine HCl 25 mg Tablet 25 mg PO BID fluticasone propionate [Flonase] 50 mcg/actuation [place],Suspension 1 spray INTRANASAL DAILY tizanidine 2 mg tablet 2 mg PO BEDTIME PRN (Reason: Pain) ondansetron HCl 4 mg tablet 4 - 8 mg PO BID PRN (Reason: nausea/vomiting) metronidazole 500 mg tablet 500 mg PO TID
[2022-09-21 13:04] LABS: Platelet Count 430 X10*3/uL (160-400)
[2022-09-21 13:05] LABS: SLIDE REVIEW VERIFIED
[2022-09-21] MEDS: Ondansetron ODT 4 MG TAB.RAPDIS TRANSLINGU (13:26)
[2022-09-21] MEDS: LORazepam 1 MG TABLET PO (13:27)
[2022-09-21] MEDS: iohexoL 350 MG/ML 100 ML INFUS..BTL IV (14:03)
[2022-09-21] MEDS: 0.9 % Sodium Chloride 1,000 ML 999 ML IV (14:23)
[2022-09-21] MEDS: Morphine Sulfate 4 MG/ML CARTRIDGE IVPUSH (14:28)
[2022-09-21 15:54] VITALS: BP 110/68; PULSE 65; RESP 14; O2SAT 98
[2022-09-21] MEDS: Potassium Chloride Packet 20 MEQ PACKET PO (16:15)
[2022-09-21 16:55] LABS: Alanine Aminotransferase 25 U/L (0-31); Albumin Level 4.2 g/dL (3.5-5.0); Alkaline Phosphatase 130 U/L (39-117); Anion Gap 12 (12-20); Aspartate Amino Transferase 30 U/L (5-31); Bilirubin Total 0.9 mg/dL (0.0-1.0); Blood Urea Nitrogen 4 mg/dL (9-16); Calcium 9.7 mg/dL (8.4-10.2); Carbon Dioxide 25 mmol/L (22-29); Chloride 108 mmol/L (96-108); Creatinine Clr Calc Pharmacy 82.1; Estimated Glomerular Filt Rate > 60; Glucose Random 96 mg/dL (60-115); Potassium 3.2 mmol/L (3.3-5.1); Sodium 142 mmol/L (135-145); Total Protein 7.4 g/dL (6.5-8.0)
[2022-09-21] MEDS: Morphine Sulfate 2 MG/ML CARTRIDGE IVPUSH (17:18)
[2022-09-21] MEDS: hydrOXYzine HCL 25 MG TABLET PO (17:19)
[2022-09-21] MEDS: ondansetron HCL 4 MG/2 ML VIAL IVPUSH (17:19)
[2022-09-21] MEDS: Potassium Chloride Packet 20 MEQ PACKET 40 MEQ PO (17:20)
--- NOTE | 2022-09-21 17:44 | PHA.MEDREC ---
Pharmacy Consult ? Medication Reconciliation Pharmacy has completed the medication reconciliation. Patient confirmed all medications. Hiwot Nash, JuanD
--- NOTE | 2022-09-21 18:06 | PM.IMHP ---
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 Pain started about 2-3 days prior to presentation. It is suprapubic. Initially had diarrhea, watery, not bloody. Has not had bowel movement in over a day. Denies fevers, chills. Was recently admitted to [facility] 2 weeks prior with starvation/alcoholic ketoacidosis and colitis, was post be discharged on cefpodoxime and Flagyl but was unable to fill the cefpodoxime. In ED noted to have mild proctitis on CT. Review of Systems Review of Systems: Yes all other systems are reviewed and are negative [facility] Medical History Anxiety Depression GERD (gastroesophageal reflux disease) History of alcohol abuse Hx of migraines Seizure Surgical History History of esophagogastroduodenoscopy (EGD) History of open reduction and internal fixation (ORIF) procedure Social History Alcohol intake: current Alcohol intake frequency: holidays/special occasions only Alcohol type: wine Smoked in Last 30 Days: No Use of substances other than those prescribed or required for medical reasons: No Advance Directives: No Advance Directives Information Provided: Yes Meds Allergies Allergy/AdvReac Type Severity Reaction Status Date / Time Gadolinium-Containing Allergy Mild HIVES, Verified 04/04/20 10:02 Contrast Medi ITCHINESS [Gadolinium-Containing AROUND NECK Agents] Penicillins Allergy Mild Hives Verified 04/04/20 10:02 Sulfa (Sulfonamide Allergy Mild Verified 04/04/20 10:02 Antibiotics) morphine Allergy Unknown Verified 04/04/20 10:02 lactose [Lactose] AdvReac Unknown DIARRHEA Verified 04/04/20 10:02 Active Medications: Current Medications Acetaminophen/Butalbital/Caffeine (Butalb/Acetamin/Caff 50/325/40 Tablet) 1 tab PO Q6H PRN PRN Reason: Migraine Headache Buspirone HCl (Buspirone Hcl 10 Mg Tablet) 10 mg PO TID [facility] Hydroxyzine HCl (Hydroxyzine Hcl 25 Mg Tablet) 25 mg PO QID PRN PRN Reason: Anxiety Ceftriaxone Sodium 1 gm/ (Sodium Chloride) 50 mls @ 100 mls/hr IV ONCE ONE Stop: 09/21/22 18:06 Non-Formulary Medication (Pantoprazole) 20 mg PO DAILY [facility] Home Medications Medication Instructions Recorded Confirmed Last Taken Type buspirone 10 mg tablet 10 mg PO TID 03/28/20 09/21/22 09/21/22 History winpoydkeu-zsncluostkceo-weozbzsm 1 cap PO Q6H PRN Migraine Headache 03/28/20 09/21/22 Unknown History 50 mg-325 mg-40 mg capsule fluticasone propionate 50 1 spray intranasal DAILY PRN 03/28/20 09/21/22 Unknown History mcg/actuation nasal Allergy Symptoms spray,suspension hydroxyzine HCl 25 mg tablet 25 mg PO QID PRN Anxiety 03/28/20 09/21/22 04/04/20 08:45 History pantoprazole 20 mg tablet,delayed 20 mg PO DAILY 03/28/20 09/21/22 09/21/22 History release polyethylene glycol 3350 17 gram 17 g PO DAILY PRN Constipation 03/28/20 09/21/22 Unknown History oral powder packet (Miralax) metronidazole 500 mg tablet 500 mg PO TID 09/21/22 09/21/22 09/21/22 History ondansetron HCl 4 mg tablet 4 mg PO BID PRN nausea/vomiting 09/21/22 09/21/22 Unknown History tizanidine 2 mg tablet 2 mg PO BEDTIME PRN Pain 09/21/22 09/21/22 Unknown History Physical Exam Vital Signs and Narrative: Vital Signs: Last Vital Signs Temp 96.8 F 09/21/22 11:56 Pulse 65 09/21/22 15:54 Resp 14 09/21/22 15:54 BP 110/68 09/21/22 15:54 Pulse Ox 98 09/21/22 15:54 O2 Del Method Room Air 09/21/22 15:54 BMI result Body Mass Index 17.5 General: AO X 3, anxious Resp: CTA bilateral, no accessory muscles used CVS: S1,S2,RRR GI: soft, suprapubic tender, non distended Neuro: motor grossly intact, alert Psych: appropriate affect, appropriate insight Results Labs 09/21/22 12:29 09/21/22 16:21 Labs: Laboratory Results - last 24 hr 09/21/22 09/21/22 09/21/22 12:29 12:29 12:29 MCV 99.3 H MCH 34.1 H MCHC 34.4 RDW 12.9 Plt Count 430 H MPV 9.3 L Immature Gran % (Auto) 0.3 Neut % (Auto) 73.2 H Lymph % (Auto) 16.1 L [place] % (Auto) 8.0 Eos % (Auto) 1.9 Baso % (Auto) 0.5 Lymph # (Auto) 1.3 [place] # (Auto) 0.6 Eos # (Auto) 0.2 Baso # (Auto) 0.0 Abs Immat Gran (auto) 0.02 Absolute Neuts (auto) 5.7 Absolute Nucleated RBC 0.000 Nucleated RBC % (auto) 0.0 Smear Tech's Comments VERIFIED Anion Gap 14 Estim Creat Clear Calc 82.1 Estimated GFR > 60 Random Glucose 113 Calcium 9.3 Total Bilirubin 0.7 AST 33 H ALT 24 Alkaline Phosphatase 120 H Total Protein 6.9 Albumin 3.8 Lipase 12 Urine Color Yellow Urine Appearance Clear Urine pH 6.0 Ur Specific [place] 1.010 Urine Protein Negative Urine Glucose (UA) Negative Urine Ketones 15 Urine Blood Negative Urine Nitrite Negative Ur Leukocyte Esterase Trace H Urine RBC 0-2 Urine WBC 0-5 Ur Squamous Epith Cells 0-2 Urine Bacteria None Seen Hyaline Casts 0-2 09/21/22 16:21 MCV MCH MCHC RDW Plt Count MPV Immature Gran % (Auto) Neut % (Auto) Lymph % (Auto) [place] % (Auto) Eos % (Auto) Baso % (Auto) Lymph # (Auto) [place] # (Auto) Eos # (Auto) Baso # (Auto) Abs Immat Gran (auto) Absolute Neuts (auto) Absolute Nucleated RBC Nucleated RBC % (auto) Smear Tech's Comments Anion Gap 12 Estim Creat Clear Calc 82.1 Estimated GFR > 60 Random Glucose 96 Calcium 9.7 Total Bilirubin 0.9 AST 30 ALT 25 Alkaline Phosphatase 130 H Total Protein 7.4 Albumin 4.2 Lipase Urine Color Urine Appearance Urine pH Ur Specific [place] Urine Protein Urine Glucose (UA) Urine Ketones Urine Blood Urine Nitrite Ur Leukocyte Esterase Urine RBC Urine WBC Ur Squamous Epith Cells Urine Bacteria Hyaline Casts Imaging Radiologist's Impressions: Impressions Abdomen/Pelvis CT 09/21/22 14:11 IMPRESSION: 1. There is some mucosal thickening involving the distal rectum with some mild inflammatory changes in the fat. Findings could represent proctitis. 2. Sigmoid diverticulosis without diverticulitis. 3. Other incidental findings as described above. Fleischner guidelines were followed. 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 Quality Stroke Does the patient have a stroke diagnosis?: No VTE Prior VTE?: No VTE Risk Level:: Medical - moderate - high VTE Device Contraindication: Treatment Not Indicated VTE Drug Contraindication: N/A - Med Ordered
[2022-09-21] MEDS: Enoxaparin Sodium 40 MG/0.4 ML SYRINGE SUBCUT (18:59)
[2022-09-21] MEDS: cefTRIAXone sodium 1 GM in 0.9 % Sodium Chloride 50 ML IV (19:00)
[2022-09-21 19:16] VITALS: BP 110/68; PULSE 68; RESP 16; TEMP 37.1; O2SAT 100
--- NOTE | 2022-09-21 19:17 | MHC.EDTECH ---
Patient used comode
--- NOTE | 2022-09-21 19:34 | PC.NURSE ---
This RN attempt to call repot. S3 RN getting rreport on another pt. Request to tiger text when ready to receive report.
[2022-09-21] MEDS: metroNIDAZOLE/NS 500 MG/100 ML PIGGYBACK 100 MG IV (19:48)
[2022-09-21] MEDS: 0.9 % Sodium Chloride 1,000 ML 80 ML IVCONT (19:48)
--- NOTE | 2022-09-21 20:04 | PC.NURSE ---
This RN attempot to call and give report. Deborah CHANDLER unavailable, in room with pt.
--- NOTE | 2022-09-21 20:10 | PC.NURSE ---
Report given to Deborah on S3.
[2022-09-21 21:16] VITALS: BP 147/68; PULSE 72; RESP 18; TEMP 35.9; O2SAT 100
[2022-09-21] MEDS: busPIRone HCl 10 MG TABLET PO (21:29)
[2022-09-21] MEDS: LORazepam 0.5 MG TABLET PO (21:29)
[2022-09-21] MEDS: HYDROmorphone HCl 0.5 MG/0.5 ML SYRINGE IVPUSH (21:48)
[2022-09-22] VITALS: BP 128/63; PULSE 55; RESP 16; TEMP 36; O2SAT 98
[2022-09-22] MEDS: ondansetron HCL 4 MG/2 ML VIAL IVPUSH ×2 (01:09→09:15)
[2022-09-22] MEDS: Butalb/Acetamin/Caff 50/325/40 TABLET 1 TAB PO ×4 (03:34→23:57)
[2022-09-22 06:36] LABS: Hematocrit 37.8 % (37.0-47.0); Hemoglobin 12.7 g/dl (12.0-16.0); Mean Corpuscular HGB Conc 33.6 g/dl (31.0-35.0); Mean Corpuscular Hemoglobin 33.8 pg (27.0-33.0); Mean Corpuscular Volume 100.5 fL (80.0-98.0); Mean Platelet Volume 9.1 fL (9.4-12.3); Platelet Count 342 X10*3/uL (160-400); Red Blood Count 3.76 X10*6/uL (4.20-5.50); Red Cell Distribution Width 12.7 % (11.0-16.0); White Blood Count 5.9 X10*3/uL (4.8-10.8)
[2022-09-22] MEDS: metroNIDAZOLE/NS 500 MG/100 ML PIGGYBACK 100 MG IV ×2 (06:37→19:26)
[2022-09-22] MEDS: LORazepam 0.5 MG TABLET PO ×3 (06:41→15:35)
[2022-09-22 06:48] LABS: Anion Gap 10 (12-20); Blood Urea Nitrogen 3 mg/dL (9-16); C Reactive Protein 1.73 mg/dL (< or = 0.50); Calcium 7.9 mg/dL (8.4-10.2); Carbon Dioxide 24 mmol/L (22-29); Chloride 109 mmol/L (96-108); Creatinine Clr Calc Pharmacy 90.4; Estimated Glomerular Filt Rate > 60; Glucose Fasting 97 mg/dL (60-99); Magnesium 1.6 mg/dL (1.6-2.6); Potassium 3.7 mmol/L (3.3-5.1); Sodium 139 mmol/L (135-145)
[2022-09-22 07:25] VITALS: BP 108/60; PULSE 77; RESP 16; TEMP 36.2; O2SAT 99
[2022-09-22 07:29] LABS: Erythrocyte Sedimentation Rate 2 MM/HR (0-20)
[2022-09-22 09:15] VITALS: RESP 19
[2022-09-22] MEDS: Cholecalciferol (Vitamin D3) 25 MCG TABLET PO (09:15)
[2022-09-22] MEDS: hydrOXYzine HCL 25 MG TABLET PO (09:15)
[2022-09-22] MEDS: busPIRone HCl 10 MG TABLET PO ×3 (09:15→20:47)
[2022-09-22] MEDS: Morphine Sulfate 2 MG/ML CARTRIDGE IVPUSH ×3 (09:15→20:52)
[2022-09-22] MEDS: Multivitamin TABLET 1 TAB PO (09:15)
[2022-09-22] MEDS: Omeprazole 20 MG CAPSULE.DR PO (09:16)
[2022-09-22 10:05] VITALS: BMI 17.5
--- NOTE | 2022-09-22 10:11 | MHC.CM.PN ---
pt lives alone ,had no previous servceis and is not expected to need services when dcd pts pcp is [facility]
[2022-09-22] MEDS: 0.9 % Sodium Chloride 1,000 ML 80 ML IVCONT ×2 (10:53→23:58)
--- NOTE | 2022-09-22 11:28 | HO.PM.IMPN ---
Subjective Subjective Date of Service: 09/22/22 Interval History: migraine, weakness, poor appetite, suprapubic pain Physical Exam Vital Signs: Vital Signs: Last Vital Signs Temp 97.1 F 09/22/22 07:25 Pulse 77 09/22/22 07:25 Resp 19 09/22/22 09:15 BP 108/60 09/22/22 07:25 Pulse Ox 99 09/22/22 07:25 O2 Del Method Room Air 09/22/22 07:25 BMI result Body Mass Index 17.5 General: AO X 3, in distress Resp: CTA bilateral, no accessory muscles used CVS: S1,S2,RRR GI: soft, suprapubic tender, non distended Neuro: motor grossly intact, alert Objective Data Active Medications Acetaminophen/Butalbital/Caffeine (Butalb/Acetamin/Caff 50/325/40 Tablet) 1 tab PO Q6H PRN PRN Reason: Migraine Headache Last Admin: 09/22/22 09:15 Dose: 1 tab Documented By: COTEMA Buspirone HCl (Buspirone Hcl 10 Mg Tablet) 10 mg PO TID [facility] Last Admin: 09/22/22 09:15 Dose: 10 mg Documented By: COTEMA Enoxaparin Sodium (Enoxaparin Sodium 40 Mg/0.4 Ml Syringe) 40 mg SUBCUT Q24H [facility] Last Admin: 09/21/22 18:59 Dose: 40 mg Documented By: FRANCISCO JAVIER Hydroxyzine HCl (Hydroxyzine Hcl 25 Mg Tablet) 25 mg PO QID PRN PRN Reason: Anxiety Last Admin: 09/22/22 09:15 Dose: 25 mg Documented By: COTEMA Metronidazole (Flagyl) 500 mg in 100 mls @ 100 mls/hr IV Q12H [facility] Last Infusion: 09/22/22 07:42 Dose: 0 mls/hr Documented By: COTEMA Ceftriaxone Sodium 1 gm/ (Sodium Chloride) 50 mls @ 100 mls/hr IV Q24H [facility] Sodium Chloride (Ns) 1,000 mls @ 80 mls/hr IVCONT .[id number] [facility] Last Admin: 09/22/22 10:53 Dose: 80 mls/hr Documented By: COTEMA Lorazepam (Lorazepam 0.5 Mg Tablet) 0.5 mg PO Q4H PRN PRN Reason: anxiety Last Admin: 09/22/22 06:41 Dose: 0.5 mg Documented By: LYSZ Morphine Sulfate (Morphine Sulfate 2 Mg/Ml Cartridge) 2 mg IVPUSH Q3H PRN; Protocol PRN Reason: moderate pain Last Admin: 09/22/22 09:15 Dose: 2 mg Documented By: COTEMA Multivitamins/Vitamin C (Multivitamin Tablet) 1 tab PO DAILY [facility] Last Admin: 09/22/22 09:15 Dose: 1 tab Documented By: COTEMA Omeprazole (Omeprazole 20 Mg Capsule.Dr) 20 mg PO DAILY [facility] Last Admin: 09/22/22 09:16 Dose: 20 mg Documented By: COTEMA Ondansetron HCl (Ondansetron Hcl 4 Mg/2 Ml Vial) 4 mg IVPUSH Q8H PRN PRN Reason: Nausea and Vomiting Last Admin: 09/22/22 09:15 Dose: 4 mg Documented By: JEAN Sodium Chloride (0.9 % Sodium Chloride Flush 3 Ml Syringe) 3 ml IVFLUSH QSHIFT [facility] Last Admin: 09/22/22 07:10 Dose: Not Given Documented By: COTPREET Non-Admin Reason: IV Running Vitamin D (Cholecalciferol (Vitamin D3) 25 Mcg Tablet) 25 mcg PO DAILY [facility] Last Admin: 09/22/22 09:15 Dose: 25 mcg Documented By: JEAN Labs 09/22/22 06:10 09/22/22 06:10 Labs: Laboratory Results - last 24 hr 09/21/22 09/21/22 09/21/22 12:29 12:29 12:29 MCV 99.3 H MCH 34.1 H MCHC 34.4 RDW 12.9 Plt Count 430 H MPV 9.3 L Immature Gran % (Auto) 0.3 Neut % (Auto) 73.2 H Lymph % (Auto) 16.1 L Hughes % (Auto) 8.0 Eos % (Auto) 1.9 Baso % (Auto) 0.5 Lymph # (Auto) 1.3 Hughes # (Auto) 0.6 Eos # (Auto) 0.2 Baso # (Auto) 0.0 Abs Immat Gran (auto) 0.02 Absolute Neuts (auto) 5.7 Absolute Nucleated RBC 0.000 Nucleated RBC % (auto) 0.0 Smear Tech's Comments VERIFIED ESR Anion Gap 14 Estim Creat Clear Calc 82.1 Estimated GFR > 60 Random Glucose 113 Fasting Glucose Calcium 9.3 Magnesium Total Bilirubin 0.7 AST 33 H ALT 24 Alkaline Phosphatase 120 H C-Reactive Protein Total Protein 6.9 Albumin 3.8 Lipase 12 Urine Color Yellow Urine Appearance Clear Urine pH 6.0 Ur Specific Todd 1.010 Urine Protein Negative Urine Glucose (UA) Negative Urine Ketones 15 Urine Blood Negative Urine Nitrite Negative Ur Leukocyte Esterase Trace H Urine RBC 0-2 Urine WBC 0-5 Ur Squamous Epith Cells 0-2 Urine Bacteria None Seen Hyaline Casts 0-2 09/21/22 09/22/22 09/22/22 16:21 06:10 06:10 MCV 100.5 H MCH 33.8 H MCHC 33.6 RDW 12.7 Plt Count 342 MPV 9.1 L Immature Gran % (Auto) Neut % (Auto) Lymph % (Auto) Hughes % (Auto) Eos % (Auto) Baso % (Auto) Lymph # (Auto) Hughes # (Auto) Eos # (Auto) Baso # (Auto) Abs Immat Gran (auto) Absolute Neuts (auto) Absolute Nucleated RBC 0.000 Nucleated RBC % (auto) 0.0 Smear Tech's Comments ESR Anion Gap 12 10 L Estim Creat Clear Calc 82.1 90.4 Estimated GFR > 60 > 60 Random Glucose 96 Fasting Glucose 97 Calcium 9.7 7.9 L D Magnesium 1.6 Total Bilirubin 0.9 AST 30 ALT 25 Alkaline Phosphatase 130 H C-Reactive Protein 1.73 H Total Protein 7.4 Albumin 4.2 Lipase Urine Color Urine Appearance Urine pH Ur Specific Todd Urine Protein Urine Glucose (UA) Urine Ketones Urine Blood Urine Nitrite Ur Leukocyte Esterase Urine RBC Urine WBC Ur Squamous Epith Cells Urine Bacteria Hyaline Casts 09/22/22 06:10 MCV MCH MCHC RDW Plt Count MPV Immature Gran % (Auto) Neut % (Auto) Lymph % (Auto) Hughes % (Auto) Eos % (Auto) Baso % (Auto) Lymph # (Auto) Hughes # (Auto) Eos # (Auto) Baso # (Auto) Abs Immat Gran (auto) Absolute Neuts (auto) Absolute Nucleated RBC Nucleated RBC % (auto) Smear Tech's Comments ESR 2 Anion Gap Estim Creat Clear Calc Estimated GFR Random Glucose Fasting Glucose Calcium Magnesium Total Bilirubin AST ALT Alkaline Phosphatase C-Reactive Protein Total Protein Albumin Lipase Urine Color Urine Appearance Urine pH Ur Specific Todd Urine Protein Urine Glucose (UA) Urine Ketones Urine Blood Urine Nitrite Ur Leukocyte Esterase Urine RBC Urine WBC Ur Squamous Epith Cells Urine Bacteria Hyaline Casts Assessment and Plan (1) Abdominal pain: Status: Acute Plan 57 y/o female with h/o?migraine headache, abdominal migraine, alcohol use disorder, depression with anxiety, fibromyalgia, 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 Quality Stroke Does the patient have a stroke diagnosis?: No VTE Prior VTE?: No VTE Risk Level:: Medical - moderate - high VTE Device Contraindication: Treatment Not Indicated VTE Drug Contraindication: N/A - Med Ordered
[2022-09-22 15:35] VITALS: RESP 19
[2022-09-22 16:00] VITALS: BP 123/57; PULSE 69; RESP 20; TEMP 35.9; O2SAT 99
[2022-09-22] MEDS: Enoxaparin Sodium 40 MG/0.4 ML SYRINGE SUBCUT (18:26)
[2022-09-22] MEDS: cefTRIAXone sodium 1 GM in 0.9 % Sodium Chloride 50 ML IV (18:26)
[2022-09-23] VITALS: BP 102/60; PULSE 82; RESP 16; TEMP 36.2; O2SAT 100
[2022-09-23] MEDS: LORazepam 0.5 MG TABLET PO ×2 (05:08→12:13)
[2022-09-23] MEDS: Morphine Sulfate 2 MG/ML CARTRIDGE IVPUSH ×2 (05:42→08:38)
[2022-09-23] MEDS: metroNIDAZOLE/NS 500 MG/100 ML PIGGYBACK 100 MG IV (06:15)
[2022-09-23] MEDS: Butalb/Acetamin/Caff 50/325/40 TABLET 1 TAB PO ×2 (06:20→12:13)
[2022-09-23 07:09] VITALS: BP 112/62; PULSE 71; RESP 16; TEMP 36.6; O2SAT 98
[2022-09-23] MEDS: busPIRone HCl 10 MG TABLET PO (08:32)
[2022-09-23] MEDS: Cholecalciferol (Vitamin D3) 25 MCG TABLET PO (08:32)
[2022-09-23] MEDS: Multivitamin TABLET 1 TAB PO (08:32)
[2022-09-23] MEDS: Omeprazole 20 MG CAPSULE.DR PO (08:32)
[2022-09-23 08:44] LABS: Anion Gap 10 (12-20); Blood Urea Nitrogen < 3 mg/dL (9-16); Calcium 8.1 mg/dL (8.4-10.2); Carbon Dioxide 22 mmol/L (22-29); Chloride 111 mmol/L (96-108); Creatinine Clr Calc Pharmacy 106.3; Estimated Glomerular Filt Rate > 60; Glucose Fasting 86 mg/dL (60-99); Potassium 3.5 mmol/L (3.3-5.1); Sodium 139 mmol/L (135-145)
[2022-09-23 10:05] LABS: Hematocrit 33.4 % (37.0-47.0); Hemoglobin 11.4 g/dl (12.0-16.0); Mean Corpuscular HGB Conc 34.1 g/dl (31.0-35.0); Mean Corpuscular Hemoglobin 33.8 pg (27.0-33.0); Mean Corpuscular Volume 99.1 fL (80.0-98.0); Mean Platelet Volume 8.9 fL (9.4-12.3); Platelet Count 272 X10*3/uL (160-400); Red Blood Count 3.37 X10*6/uL (4.20-5.50); Red Cell Distribution Width 12.6 % (11.0-16.0); White Blood Count 3.6 X10*3/uL (4.8-10.8)
--- NOTE | 2022-09-23 10:12 | MHC.CLN ---
F/U DIET RX: REGULAR-APPROPRIATE PT FOLLOWING BLAND LACTOSE FREE DIET PER HER PREFERENCE AT THIS TIME. RECEPTIVE TO DRINKING ENSURE CLEAR BID AND GELATEIN TID (LEMON FLAVOR) TO INCREASE KCALS. SUPPLEMENTS PROVIDE ADDITIONAL 960 KCALS, 76 G PROTEIN. INTAKE APPEARS TO BE VERY GOOD, 75-100% MONITOR PO INTAKE AND SUPPLEMENT ACCEPTANCE.
[2022-09-23] MEDS: Dicyclomine HCl 10 MG CAPSULE PO (11:30)
--- NOTE | 2022-09-23 11:56 | MHC.CM.PN ---
pt dcd home no skilled servceis ordered by
--- NOTE | 2022-09-23 15:24 | P.DS_ITS ---
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 Pain started about 2-3 days prior to presentation.? It is suprapubic.? Initially had diarrhea, watery, not bloody.? Has not had bowel movement in over a day.? Denies fevers, chills.? Was recently admitted to [facility] 2 weeks prior with starvation/alcoholic ketoacidosis and colitis, was post be discharged on cefpodoxime and Flagyl but was unable to fill the cefpodoxime.? In ED noted to have mild proctitis on CT. 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 presented with abdominal pain acute proctitis, admitted to medical floor, treated with IV ceftriaxone on Flagyl , CT abdomen and pelvis showed mild inflammatory changes and rectum, and diverticulosis with no evidence of diverticulitis, urinalysis unremarkable, patient with history of irritable bowel syndrome with constipation alternating with diarrhea continue to have right lower abdominal discomfort with normal examination, patient also provided history of multiple recent antibiotic treatment, no evidence of acute infection with normal WBC count no fevers, tolerating diet with no nausea vomiting, informed patient that most likely her symptoms are due to irritable bowel syndrome recommended antispasmodic m edication and Metamucil recommended outpatient follow-up with GI will discontinue all antibiotics patient's sister at bedside, patient with significant underlying anxiety recommended outpatient counseling and medication adjustment likely contributing to abdominal symptoms, support provided, recommended to continue home medication for anxiety. etoh dependence reports >2 weeks sobriety , no evidence of withdrawal noted strongly recommend to abstain from alcohol Time Spent with Patient Time attestation: Total time managing care of this patient today ____ minutes. Discharge coordination time: Greater than 30 minutes Quality: Safe Use of Opioids Does Pt have an Active Cancer Diagnosis on the Problem List?: No Quality: Stroke Does the patient have a stroke diagnosis?: No Physical Exam Vital Signs: Vital Signs: Last Vital Signs Temp 98 F 09/23/22 07:09 Pulse 71 09/23/22 07:09 Resp 16 09/23/22 07:09 BP 112/62 09/23/22 07:09 Pulse Ox 98 09/23/22 07:09 O2 Del Method Room Air 09/23/22 07:09 BMI result Body Mass Index 17.5 Const: Other: General awake alert x3, anxious, in no acute distress. Neck supple no JVD. CVS regular rate rhythm, Respiratory lungs clear to auscultation, no respiratory distress, no wheeze, no rhonchi. Gastrointestinal abdomen soft, nontender, bowel sounds audible, no guarding , no rigidity. Extremities no edema. Neuro nonfocal Skin no rash DS: Data Data Completed and Pending Labs on day of discharge: Laboratory Results - last 24 hr 09/23/22 09/23/22 08:09 09:49 WBC 3.6 L RBC 3.37 L Hgb 11.4 L Hct 33.4 L MCV 99.1 H MCH 33.8 H MCHC 34.1 RDW 12.6 Plt Count 272 MPV 8.9 L Absolute Nucleated RBC 0.000 Nucleated RBC % (auto) 0.0 Sodium 139 Potassium 3.5 Chloride 111 H Carbon Dioxide 22 Anion Gap 10 L BUN < 3 L Creatinine 0.51 Estim Creat Clear Calc 106.3 Estimated GFR > 60 Fasting Glucose 86 Calcium 8.1 L Preliminary micro results at discharge 09/21/22 18:36 Blood Culture - Preliminary Blood - Venous No growth after 24 hours. 09/21/22 18:36 Blood Culture - Preliminary Blood - Venous No growth after 24 hours. Discharge Plan Discharge Anticipated Discharge Date/Time: 09/23/22 11:38 Patient Disposition: Home, Self-Care Discharge Diagnosis: abdominal pain Referrals: Christy Bosch MD [Primary Care Provider] - 1 Week Discharge Medications: New dicyclomine 10 mg Capsule 10 mg PO Q6H PRN (Reason: abdominal pain) Qty: 60 0RF Metamucil 3.4 gram/5.4 gram powder 1 tbsp PO DAILY Qty: 660 0RF Rx Instructions: mix into at least 8 oz of water or juice before administering Continued [id number] 50-325-40 mg Capsule 1 cap PO Q6H PRN (Reason: Migraine Headache) pantoprazole 20 mg Tablet,Delayed Release (Dr/Ec) 20 mg PO DAILY buspirone 10 mg Tablet 10 mg PO TID hydroxyzine HCl 25 mg Tablet 25 mg PO QID PRN (Reason: Anxiety) fluticasone propionate 50 mcg/actuation [place],Suspension 1 spray INTRANASAL DAILY PRN (Reason: Allergy Symptoms) tizanidine 2 mg tablet 2 mg PO BEDTIME PRN (Reason: Pain) ondansetron HCl 4 mg tablet 4 mg PO BID PRN (Reason: nausea/vomiting) multivitamin Tablet 1 tab PO DAILY cholecalciferol (vitamin D3) 25 mcg (1,000 unit) Tablet 25 mcg PO DAILY Discontinued polyethylene glycol 3350 [Miralax] 17 gram Powder In Packet 17 g PO DAILY PRN (Reason: Constipation) metronidazole 500 mg tablet 500 mg PO TID Discharge Orders: Discharge Order (Routine); Ordered 09/23/22 Ordered By: Yolanda Ching Diet: Advance to usual diet Activity on Discharge: As tolerated Stand Alone Forms: Patient Portal Discharge page Care Plan Goals: abdominal pain likely due to irritable bowel syndrome and anxiety recommend to take Bentyl as needed for abdominal spasm, take Metamucil to regularize bowel and to have outpatient follow-up with Gastroenterology Health Concerns: anxiety recommend outpatient therapy Plan of Treatment: outpatient follow-up with primary care physician, recommend outpatient gastro enterology referral Assessment: as above Discharge Date/Time: 09/23/22 12:40
== END 2022-09-23 12:40 | disposition home or self-care (01) ==
LOC: HO.ED 17:48 → HO.EDOVER 18:07 → HO.S3 19:29
PROVIDERS: Physician Assistant; Admitting Provider Internal Medicine; Emergency Provider Emergency Medicine; PCP Internal Medicine; Visit Provider Hospitalist
DX: R10.31 Right lower quadrant pain (principal); K57.30 Diverticulosis of large intestine without perforation or abscess without bleeding; K58.9 Irritable bowel syndrome, unspecified; F41.9 Anxiety disorder, unspecified; Z79.899 Other long term (current) drug therapy
CPT/HCPCS: 36415; 74177; 80048; 80053; 81001; 83690; 83735; 85025; 85027; 85652; 86140; 87040; 96361; 96365; 96366; 96367; 96372; 96375; 96376; 99221; 99285; J0696; J1170; J1650; J2270; J2405; Q9967

== ENCOUNTER → 2022-09-21 18:03 | Outpatient (BNV) | payer OTHER, SELFPAY | PROVIDERS: Admitting Provider Internal Medicine; Emergency Provider Emergency Medicine; Visit Provider Internal Medicine | DX: R10.9 Unspecified abdominal pain (principal) | CPT/HCPCS: 99222; 99232; 99239 ==